=== PATIENT | female | born 1970 | race Caucasian/White ===

== ENCOUNTER 2019-11-01 12:24 | Day surgery (SDC) | payer OTHER ==
[~2019-11-01] VITALS: Ht 180.3 cm; Wt 89.0 kg
[~2019-11-01 12:24] MED LIST: LIDOCAINE 2%, 20ML ONE; LIDOCAINE 4% TOPICAL SOLUTION 50 ML ONE; LIDOCAINE GEL 2%, 5ML ONE
[2019-11-01 12:55] VITALS: BP 141/90
[2019-11-01] MEDS ORDERED: SODIUM CHLORIDE 0.9% 1,000 ML IV SCH (13:00)
[2019-11-01] MEDS ORDERED: MIDAZOLAM 1 MG/ML, 5ML ONE (13:18)
[2019-11-01] MEDS ORDERED: FENTANYL PF 100 MCG/2ML ONE (13:19)
[2019-11-01] MEDS ORDERED: LEVOTHYROXINE PO (13:30)
[2019-11-01] MEDS ORDERED: EVENING PRIMROSE PO (13:30)
[2019-11-01] MEDS ORDERED: ADRENAL COMPLEX PO (13:30)
[2019-11-01] MEDS ORDERED: LOSARTAN PO (13:30)
[2019-11-01] MEDS ORDERED: EVAMIST NAS (13:30)
[2019-11-01] MEDS ORDERED: VITAMIN D PO (13:30)
[2019-11-01] MEDS ORDERED: CHLORHEXIDINE 15 ML UDC MM ONE (13:30)
[2019-11-01] MEDS ORDERED: MONT10TA11 PO (13:30)
[2019-11-01] MEDS ORDERED: SPIRIVA NAS (13:30)
[2019-11-01 13:37] LABS: BASOPHILS # (AUTO) 0.02 x10^3/uL (0-0.1); BASOPHILS % (AUTO) 1 % (0-1); EOSINOPHILS # (AUTO) 0.07 x10^3/uL (0-0.4); EOSINOPHILS % (AUTO) 2 % (1-7); LYMPHOCYTES # (AUTO) 1.09 x10^3/uL (1-3.4); LYMPHOCYTES % (AUTO) 27 % (22-44); MD NO; MEAN CORPUSCULAR HEMOGLOBIN 28.9 pg (27.0-34.8); MEAN CORPUSCULAR HGB CONC 33.1 g/dL (32.4-35.8); MEAN CORPUSCULAR VOLUME 87.3 fL (80-100); MEAN PLATELET VOLUME 8.2 fL (7.4-10.4); MONOCYTES % (AUTO) 7 % (2-9); NEUTROPHILS # (AUTO) 2.57 x10^3/uL (1.8-6.8); NEUTROPHILS % (AUTO) 64 % (42-75); PLATELET COUNT 258 x10^3/uL (130-400); RED BLOOD COUNT 5.29 x10^6/uL (3.82-5.3)
[2019-11-01 13:44] LABS: INTERNATIONAL NORMALIZED RATIO 0.94 (0.93-1.1)
== END 2019-11-01 16:55 | disposition home or self-care (01) ==
LOC: OUT 12:24
PROVIDERS: ATTEND Internal Medicine
DX: R94.2 Abnormal results of pulmonary function studies (principal); Z11.59 Encounter for screening for other viral diseases; J38.6 Stenosis of larynx; J45.40 Moderate persistent asthma, uncomplicated; Z88.0 Allergy status to penicillin; Z79.899 Other long term (current) drug therapy; Z98.890 Other specified postprocedural states
CPT/HCPCS: 31623; 36415; 85025; 85610; 85730; 88104; 88112; 99152; 99153; J2250; J3010; J7030; U0001